=== PATIENT | male | born 1950 | race Caucasian/White ===

== ENCOUNTER 2020-07-28 14:59 | Outpatient (NON) | payer MEDICARE, SELFPAY ==
[2020-07-28 17:08] LABS: Source Synovial Fluid Synovial fluid
[2020-07-28 17:09] LABS: Appearance Synovial Fluid Hazy (Clear); Color Synovial Fluid Yellow (Colorless)
[2020-07-28 17:10] LABS: Lymphocytes Synovial Fluid 4 %; Monocytes Synovial Fluid 7 %; Neutrophils Synovial Fluid 89 % (0-25); Nucleated Cell Synovial Fluid 1765 /uL (0-200)
== END 2020-07-28 15:00 ==
LOC: ANHLAB 15:00
PROVIDERS: PCP Family Medicine; Visit Provider Orthopaedic Surgery
DX: T85.698A Other mechanical complication of other specified internal prosthetic devices, implants and grafts, initial encounter (principal); T84.039A Mechanical loosening of unspecified internal prosthetic joint, initial encounter
CPT/HCPCS: 87070; 87075; 87205; 89051; 89060

== ENCOUNTER 2020-08-29 14:41 | Emergency (ER) | payer MEDICARE, SELFPAY ==
--- NOTE | ~2020-08-29 | XR_ITS ---
EXAMINATION: XR elbow RT 2V DATE: 08/29/2020 18:37 INDICATION: Posterior right elbow pain, swelling and erythema. TECHNIQUE: Anteroposterior, two oblique and lateral views of the right elbow were obtained. COMPARISON: None. FINDINGS: Alignment is normal. No fracture or joint effusion. Joint spaces are normal. Dense soft tissue swelli ng posterior to the olecranon. No cortical erosion or periosteal reaction. IMPRESSION: 1. Soft tissue swelling posterior to the olecranon with differential including olecranon bursitis, ce llulitis or hematoma. Reviewed, dictated and finalized at location H. PROMOTOR IMPRESSION: 1. Soft tissue swelling posterior to the olecranon with differential including olecranon bursitis, cellulitis or hematoma.
[2020-08-29 15:23] VITALS: BP 153/76; PULSE 98; RESP 17; TEMP 36.9; O2SAT 100
[2020-08-29 15:51] LABS: Basophils Absolute Auto 0.1 K/mm3 (0.0-0.1); Basophils Percent Auto 0.6 % (0.2-1.2); Eosinophils Absolute Auto 0.2 K/mm3 (0-0.3); Eosinophils Percent Auto 2.1 % (0-4.4); Hematocrit 34.3 % (42.0-52.0); Hemoglobin 11.4 g/dL (14.0-18.0); Immature Granulocyte Absolute 0.07 K/mm3 (0.00-0.031); Immature Granulocyte Percent A 0.6 % (0-0.5); Lymphocytes Absolute Auto 1.01 K/mm3 (0.9-3.2); Lymphocytes Percent Auto 9.3 % (18.3-44.2); Mean Corpuscular HGB Conc 33.2 g/dl (32-36); Mean Corpuscular Hemoglobin 30.7 pg (26-34); Mean Corpuscular Volume 92.5 fl (80-100); Mean Platelet Volume 9.6 fl (7.4-10.4); Monocytes Absolute Auto 1.3 K/mm3 (0.1-0.6); Monocytes Percent Auto 12.2 % (2.6-8.5); Neutrophils Absolute Auto 8.2 K/mm3 (1.3-6.7); Neutrophils Percent Auto 75.2 % (45.5-73.1); Platelet Count Result 300 k/mm3 (150-375); Red Blood Count 3.71 M/mm3 (4.6-6.20); Red Cell Distribution Width 16.2 % (11.5-14.5); White Blood Count 10.9 K/mm3 (4.5-10.0)
[2020-08-29 16:02] LABS: Alanine Aminotransferase 15 U/L (4-50); Albumin Level 4.1 g/dL (3.5-5.1); Alkaline Phosphatase 108 U/L (38-126); Anion Gap 13 mmol/L (8-16); Aspartate Amino Transferase 21 U/L (17-59); Bilirubin,Total 3.8 mg/dL (0.2-1.3); Blood Urea Nitrogen 19 mg/dL (9-20); Calcium 9.9 mg/dL (8.4-10.2); Carbon Dioxide 21 mmol/L (22-30); Chloride 100 mmol/L (98-107); Estimated CRCL calculation 46 ml/min; Estimated Glomerular Filt Rate 46; Glucose 132 mg/dL (75-110); Lipase 49 U/L (23-300); Potassium 4.3 mmol/L (3.4-5.0); Sodium 134 mmol/L (137-145)
--- NOTE | 2020-08-29 18:46 | ED.GENADULT ---
HPI - General Adult General Chief complaint: Unspecified Stated complaint: right elbow pain, illeostomy issues Time Seen by Provider: 08/29/20 18:20 Source: patient History of Present Illness HPI narrative: Patient is a 70 y/o male complaining of right elbow pain starting yesterday. He describes the pain as aching and rates it as 8/10. He did not have any injury. Movement worsens the pain. There is no pain radiation. He also has swelling to right elbow. In addition, he has some right knee pain and right foot pain due to gout. Related Data Home Medications Medication Instructions Recorded Confirmed allopurinol 300 mg PO DAILY 10/06/19 10/06/19 citalopram 20 mg PO DAILY 10/06/19 10/06/19 ergocalciferol (vitamin D2) 50,000 unit PO WEEKLY 10/06/19 10/06/19 [Vitamin D2] potassium chloride 20 meq PO DAILY 10/06/19 10/06/19 Allergies Allergy/AdvReac Type Severity Reaction Status Date / Time shellfish derived Allergy Severe Swelling Verified 10/06/19 15:59 of Lip/Tongue/Throat meperidine Allergy Mild DROPS BP Verified 10/06/19 15:59 SEVERELY Review of Systems Constitutional: Constitutional: Denies chills, Denies fever(s), Denies headache(s) and Denies weakness Eyes: Eyes: Denies blurry vision ENT: Denies headache(s) and Denies neck pain Cardiovascular: Cardiovascular: Denies chest pain and Denies dyspnea Respiratory: Respiratory: Denies cough and Denies dyspnea Gastrointestinal: Gastrointestinal: Denies abdominal pain, Denies diarrhea, Denies nausea and Denies vomiting Genitourinary: Genitourinary: Denies hematuria and Denies dysuria Musculoskeletal: Musculoskeletal: Reports as per HPI, Denies back pain, Denies neck pain and Reports other (right elbow pain, knee pain and foot pain) Neurologic: Denies headache(s) and Denies weakness [facility] Past Medical History Medical History Anxiety Back pain Cataracts, bilateral Depression GERD (gastroesophageal reflux disease) Gout HTN (hypertension) Ileostomy in place Kidney stones Liver disease Nasal fracture Orthostatic hypotension Pacemaker Reports it was placed 2 years ago. His county historian is Dr Quinn. Pancreatitis Ulcerative colitis Surgical History Surgical History H/O ileostomy 1992 History of permanent cardiac pacemaker placement Hx of cataract surgery Hx of cholecystectomy Hx of spinal surgery cervical spacers Hx of tonsillectomy Family History Family History Sibling Diabetes mellitus Hypertension Mother Diabetes mellitus Social History Social History Social History: Mr. Campo lives at home with his in [place]. He is retired from working in law enforcement and being in the . He reports rare alcohol consumption, around 1 drink per year. Smoked 1.5 packs per day cigarettes x 15 years. Denies substance use. His PCP is Dr Rivera. His code status is Do Not Resuscitate. Smoking packs per day: 1.5 Smoking cigarettes per day: 30.0 Years smoked: 40 Smoking pack-years: 60.00 Smoking status: Former smoker Tobacco type: cigarettes Smoking end date: 10/07/18 Alcohol intake: former Substance use: never Gender identity (if verbalized by the patient): Male Spiritual care concerns: No Agree to blood products: Yes Exam Const: General: no acute distress and well developed Orientation/consciousness: oriented to person, oriented to place, oriented to time and patient oriented x3 HENMT: Head: normocephalic Ears: external ears normal General nose exam: Normal external nose present Eyes: General: appearance normal, both eyes and all related structures Conjunctivae: conjunctivae normal Neck: Neck: normal visual inspection and full ROM Chest: Chest palpation & inspection: normal insp
[2020-08-29 18:50] LABS: Uric Acid 6.9 mg/dL (3.5-8.5)
[2020-08-29 19:19] LABS: Erythrocyte Sedimentation Rate 77 mm/hr (0-20)
[2020-08-29 19:27] LABS: CRP 12.7 mg/dL (<1.0)
[2020-08-29 19:36] LABS: Source Synovial Fluid Synovial fluid
[2020-08-29 19:56] LABS: Appearance Synovial Fluid Cloudy (Clear); Color Synovial Fluid Red (Colorless); Lymphocytes Synovial Fluid 5 %; Macrophages Synovial Fluid 18 %; Neutrophils Synovial Fluid 77 % (0-25); Nucleated Cell Synovial Fluid 2419 /uL (0-200)
[2020-08-29 20:02] LABS: Crystals Synovial Fluid None Seen (None Seen)
[2020-08-29] MEDS: HYDROcodone/acetaminophen (*CRX) 5-325 MG TABLET 1 TAB PO (20:38)
[2020-08-29 22:06] VITALS: BP 146/78; PULSE 84; RESP 16; TEMP 36.6; O2SAT 99
== END 2020-08-29 22:09 | disposition home or self-care (01) ==
PROVIDERS: Emergency Medicine; Emergency Provider Emergency Medicine; PCP Family Medicine
DX: M70.21 Olecranon bursitis, right elbow (principal); M10.9 Gout, unspecified; F41.9 Anxiety disorder, unspecified; F32.9 Major depressive disorder, single episode, unspecified; K21.9 Gastro-esophageal reflux disease without esophagitis; I10 Essential (primary) hypertension; Z87.442 Personal history of urinary calculi; K76.9 Liver disease, unspecified; Z95.0 Presence of cardiac pacemaker; Z98.42 Cataract extraction status, left eye; Z98.41 Cataract extraction status, right eye; Z87.891 Personal history of nicotine dependence
CPT/HCPCS: 20605; 36415; 73070; 80053; 83690; 84550; 85025; 85652; 86140; 87070; 87075; 87205; 88108; 89051; 89060; 99283; A9270

== ENCOUNTER 2024-01-22 12:04 | Outpatient (CLI) | payer MEDICARE, SELFPAY ==
[2024-01-22 12:18] LABS: Basophils Absolute Auto 0.1 K/mm3 (0.0-0.1); Basophils Percent Auto 0.9 % (0.2-1.2); Eosinophils Absolute Auto 0.4 K/mm3 (0-0.3); Eosinophils Percent Auto 5.5 % (0-4.4); Hematocrit 33.3 % (42.0-52.0); Hemoglobin 11.1 g/dL (14.0-18.0); Immature Granulocyte Absolute 0.03 K/mm3 (0.00-0.031); Immature Granulocyte Percent A 0.5 % (0-0.5); Lymphocytes Absolute Auto 1.47 K/mm3 (0.9-3.2); Lymphocytes Percent Auto 22.3 % (18.3-44.2); Mean Corpuscular HGB Conc 33.3 g/dl (32-36); Mean Corpuscular Hemoglobin 34.2 pg (26-34); Mean Corpuscular Volume 102.5 fl (80-100); Mean Platelet Volume 9.3 fl (7.4-10.4); Monocytes Absolute Auto 0.5 K/mm3 (0.1-0.6); Neutrophils Absolute Auto 4.1 K/mm3 (1.3-6.7); Neutrophils Percent Auto 62.8 % (45.5-73.1); Platelet Count Result 175 k/mm3 (150-375); Red Blood Count 3.25 M/mm3 (4.6-6.20); White Blood Count 6.6 K/mm3 (4.5-10.0)
[2024-01-22 16:38] LABS: Alanine Aminotransferase 59 U/L (6-50); Albumin Level 4.5 g/dL (3.5-5.1); Alkaline Phosphatase 81 U/L (38-126); Anion Gap 12 mmol/L (4-12); Aspartate Amino Transferase 55 U/L (17-59); Bilirubin,Total 1.9 mg/dL (0.2-1.3); Blood Urea Nitrogen 33 mg/dL (9-20); Calcium 10.5 mg/dL (8.4-10.2); Carbon Dioxide 16 mmol/L (22-30); Chloride 109 mmol/L (98-107); Estimated Glomerular Filt Rate 21; Glucose 117 mg/dL (65-110); Lactate Dehydrogenase 173 U/L (120-246); Potassium 3.9 mmol/L (3.4-5.0); Sodium 137 mmol/L (137-145)
[2024-01-22 17:51] LABS: Folic Acid > 20.0 ng/mL (2.76->20); Vitamin B12 > 1000.0 pg/mL (239-931)
[2024-01-22 18:16] LABS: Iron 111 ug/dL (49-181); Percent Iron Saturation 27 % (20-50)
[2024-01-27 05:19] LABS: Methylmalonic Acid 202 nmol/L (87-318)
[2024-01-28 13:23] LABS: Soluble Transferrin Receptor 1.41 mg/L (0.76-1.76)
== END 2024-01-22 12:05 | disposition home or self-care (01) ==
LOC: ANHLAB 12:06
PROVIDERS: Nurse Practitioner Family; PCP Internal Medicine; Visit Provider Internal Medicine Hematology & Oncology
DX: D64.9 Anemia, unspecified (principal)
CPT/HCPCS: 36415; 80053; 82607; 82728; 82746; 83540; 83550; 83615; 83921; 84238; 85025

== ENCOUNTER 2024-04-29 10:55 | Outpatient (CLI) | payer MEDICARE, SELFPAY ==
[2024-04-29 11:13] LABS: Basophils Absolute Auto 0.1 K/mm3 (0.0-0.1); Eosinophils Absolute Auto 0.9 K/mm3 (0-0.3); Hematocrit 31.5 % (42.0-52.0); Hemoglobin 10.4 g/dL (14.0-18.0); Immature Granulocyte Absolute 0.02 K/mm3 (0.00-0.031); Immature Granulocyte Percent A 0.3 % (0-0.5); Lymphocytes Absolute Auto 1.55 K/mm3 (0.9-3.2); Lymphocytes Percent Auto 25.2 % (18.3-44.2); Mean Corpuscular Volume 106.1 fl (80-100); Mean Platelet Volume 9.7 fl (7.4-10.4); Monocytes Absolute Auto 0.5 K/mm3 (0.1-0.6); Monocytes Percent Auto 8.6 % (2.6-8.5); Neutrophils Absolute Auto 3.1 K/mm3 (1.3-6.7); Neutrophils Percent Auto 50.9 % (45.5-73.1); Platelet Count Result 159 k/mm3 (150-375); Red Blood Count 2.97 M/mm3 (4.6-6.20); Red Cell Distribution Width 13.3 % (11.5-14.5); White Blood Count 6.2 K/mm3 (4.5-10.0)
[2024-04-29 12:23] LABS: Iron 111 ug/dL (49-181)
[2024-04-29 12:27] LABS: Alanine Aminotransferase 16 U/L (6-50); Alkaline Phosphatase 72 U/L (38-126); Anion Gap 11 mmol/L (4-12); Aspartate Amino Transferase 16 U/L (17-59); Bilirubin,Total 2.3 mg/dL (0.2-1.3); Blood Urea Nitrogen 21 mg/dL (9-20); Calcium 9.2 mg/dL (8.4-10.2); Carbon Dioxide 21 mmol/L (22-30); Chloride 105 mmol/L (98-107); Estimated Glomerular Filt Rate 27; Glucose 88 mg/dL (65-110); Potassium 4.3 mmol/L (3.4-5.0); Sodium 137 mmol/L (137-145)
[2024-04-29 12:33] LABS: Percent Iron Saturation 32 % (20-50)
== END 2024-04-29 10:56 | disposition home or self-care (01) ==
LOC: ANHLAB 10:57
PROVIDERS: Nurse Practitioner Family; PCP Internal Medicine; Visit Provider Internal Medicine Hematology & Oncology
DX: D64.9 Anemia, unspecified (principal)
CPT/HCPCS: 36415; 80053; 82607; 82728; 83540; 83550; 85025